=== PATIENT | male | born 1990 | race Caucasian/White ===

== ENCOUNTER 2020-07-28 02:20 | Emergency (ER) | payer MEDICAID ==
[~2020-07-28] VITALS: Ht 198.1 cm; Wt 104.5 kg
[~2020-07-28 02:20] MED LIST: HYDR-4383 PO
[2020-07-28 02:26] VITALS: BP 124/80
[2020-07-28] MEDS ORDERED: CEPH250T PO (02:29)
[2020-07-28] MEDS ORDERED: ibuprofen tablet 400 MG TABLET PO ONE (02:30)
[2020-07-28] MEDS ORDERED: acetaminophen 325mg tablet PO ONE (02:30)
[2020-07-28] MEDS ORDERED: ondansetron 4mg rapidly disintigrating tab PO ONE (02:30)
[2020-07-28] MEDS ORDERED: cephalexin 250mg capsule PO ONE (02:30)
--- NOTE | 2020-07-28 02:44 | NUR ---
Patient refused all medications, stating he had antibiotics at home and he came here for pain medication "per the necessary 3 day protocol" and "I am not a fucking drug addict". Patient refused to take prescription for Keflex and got up and walked out of exam room refusing to sign paperwork or take discharge instructions. MD notified.
== END 2020-07-28 02:49 | disposition home or self-care (01) ==
LOC: ER 02:21
DX: L03.116 Cellulitis of left lower limb (principal); F12.90 Cannabis use, unspecified, uncomplicated; Z90.89 Acquired absence of other organs; Z86.14 Personal history of Methicillin resistant Staphylococcus aureus infection; Z79.899 Other long term (current) drug therapy; Z88.2 Allergy status to sulfonamides; Z88.1 Allergy status to other antibiotic agents
CPT/HCPCS: 99283

== ENCOUNTER 2020-10-05 10:25 | Emergency (ER) | payer MEDICAID ==
[~2020-10-05] VITALS: Ht 198.1 cm; Wt 100.0 kg
[2020-10-05 10:47] VITALS: BP 135/84
== END 2020-10-05 15:53 | disposition left against medical advice (07) ==
LOC: ER 10:26
DX: S51.852A Open bite of left forearm, initial encounter (principal); Z53.21 Procedure and treatment not carried out due to patient leaving prior to being seen by health care provider; W54.0XXA Bitten by dog, initial encounter; Y93.89 Activity, other specified; Y92.89 Other specified places as the place of occurrence of the external cause; Y99.8 Other external cause status

== ENCOUNTER 2022-01-19 13:11 | Emergency (ER) | payer MEDICAID ==
[~2022-01-19] VITALS: Ht 195.6 cm; Wt 125.0 kg
[2022-01-19 13:11] VITALS: BP 145/91
[2022-01-19] MEDS ORDERED: LIDOcaine 1% W/epiNEPHrine 1:100,000 20ml vial SQ ONE (16:25)
[2022-01-19] MEDS ORDERED: LIDOcaine 1% w/EPI 1:100,000 30ml vial (MDV) SQ ONE (16:30)
[2022-01-19] MEDS ORDERED: cephalexin 500mg capsule PO ONE (17:15)
[2022-01-19] MEDS ORDERED: ibuprofen 200mg tablet PO ONE (17:15)
[2022-01-19] MEDS ORDERED: CEPH500C82 PO (17:19)
== END 2022-01-19 17:42 | disposition home or self-care (01) ==
LOC: ER 13:12
DX: L02.31 Cutaneous abscess of buttock (principal); F12.90 Cannabis use, unspecified, uncomplicated; Z86.14 Personal history of Methicillin resistant Staphylococcus aureus infection; Z90.89 Acquired absence of other organs; Z88.2 Allergy status to sulfonamides; Z88.1 Allergy status to other antibiotic agents; Z79.2 Long term (current) use of antibiotics
CPT/HCPCS: 10060; 99283

== ENCOUNTER 2022-10-06 13:19 | Emergency (ER) | payer MEDICAID ==
[~2022-10-06] VITALS: Ht 195.6 cm; Wt 122.0 kg
[~2022-10-06 13:19] MED LIST changes: +HYDR-3973 PO
[2022-10-06 13:21] VITALS: BP 143/98
[2022-10-06] MEDS ORDERED: DOXY-356 PO (14:05)
[2022-10-06] MEDS ORDERED: HYDR-3972 PO (14:05)
== END 2022-10-06 14:14 | disposition home or self-care (01) ==
LOC: ER 13:20
DX: S51.801A Unspecified open wound of right forearm, initial encounter (principal); F12.10 Cannabis abuse, uncomplicated; Z86.14 Personal history of Methicillin resistant Staphylococcus aureus infection; Z88.2 Allergy status to sulfonamides; Z88.1 Allergy status to other antibiotic agents; Z79.899 Other long term (current) drug therapy; W54.0XXA Bitten by dog, initial encounter; Y93.89 Activity, other specified; Y92.89 Other specified places as the place of occurrence of the external cause; Y99.8 Other external cause status
CPT/HCPCS: 99283; A6258; A6449

== ENCOUNTER 2022-10-23 13:45 | Emergency (ER) | payer MEDICAID ==
[~2022-10-23] VITALS: Ht 195.6 cm; Wt 106.0 kg
[2022-10-23 13:55] VITALS: BP 144/100; PULSE 114; RESP 17; O2SAT 97
[2022-10-23] MEDS ORDERED: HYDR-3973 PO (15:46)
== END 2022-10-23 16:11 | disposition home or self-care (01) ==
LOC: ER 13:46
DX: S51.852D Open bite of left forearm, subsequent encounter (principal); M79.632 Pain in left forearm; Z88.2 Allergy status to sulfonamides; Z88.1 Allergy status to other antibiotic agents; Z79.899 Other long term (current) drug therapy; W54.0XXD Bitten by dog, subsequent encounter
CPT/HCPCS: 99283

== ENCOUNTER 2023-01-03 08:37 | Emergency (ER) | payer MEDICAID ==
[~2023-01-03] VITALS: Ht 195.6 cm; Wt 113.6 kg
[~2023-01-03 08:37] MED LIST changes: -HYDR-3973 PO
[2023-01-03 08:43] VITALS: BP 145/97; PULSE 124; RESP 16; TEMP 98.6; O2SAT 98
[2023-01-03] MEDS ORDERED: fluconazole 100mg tablet PO ONE (09:15)
[2023-01-03] MEDS ORDERED: diphenhydrAMINE 25 MG/10 ML UD oral solution PO ONE (09:15)
[2023-01-03] MEDS ORDERED: LIDOcaine Viscous 15ml cup MM PRN (09:15)
[2023-01-03] MEDS ORDERED: mag hydrox/Alum hydrox/simeth 30ml oral suspension PO ONE (09:15)
[2023-01-03] MEDS ORDERED: FLUC100T PO (09:16)
[2023-01-03] MEDS ORDERED: ACET160S PO (09:18)
== END 2023-01-03 09:53 | disposition home or self-care (01) ==
LOC: ER 08:37
DX: B37.81 Candidal esophagitis (principal)
CPT/HCPCS: 99284; Q0163

== ENCOUNTER 2023-06-06 21:53 | Emergency (ER) | payer MEDICAID ==
[~2023-06-06] VITALS: Ht 195.6 cm; Wt 106.3 kg
[2023-06-06] MEDS ORDERED: LORazepam 1 MG tablet PO ONE (22:15)
[2023-06-06] MEDS: amox tr/potassium clavulanate 875/125mg TAB PO ONE (22:20)
[2023-06-06] MEDS ORDERED: AMOX-580 PO (22:20)
[2023-06-06] MEDS: TETanus/Pertussis (Acell)/Diphther VAC/PF (Tdap-Adult) 0.5ml syringe IMVAC ONE (22:21)
[2023-06-06] MEDS ORDERED: ketorolac trometh. 30mg/ml inj. IM ONE (22:25)
[2023-06-06] MEDS: oxyCODONE/APAP 5-325mg tablet PO ONE (23:13)
[2023-06-06] MEDS: LORazepam 1 MG tablet PO ONE (23:15)
[2023-06-06] MEDS: ketorolac trometh. 30mg/ml inj. IM ONE (23:15)
[2023-06-07 00:24] VITALS: BP 130/80; PULSE 88; RESP 18; TEMP 98.1; O2SAT 100
== END 2023-06-06 23:45 | disposition home or self-care (01) ==
LOC: ER 21:54
DX: S51.812A Laceration without foreign body of left forearm, initial encounter (principal); S51.811A Laceration without foreign body of right forearm, initial encounter; S81.811A Laceration without foreign body, right lower leg, initial encounter; F12.90 Cannabis use, unspecified, uncomplicated; Z88.2 Allergy status to sulfonamides; Z88.1 Allergy status to other antibiotic agents; Z79.2 Long term (current) use of antibiotics; W54.0XXA Bitten by dog, initial encounter; Y93.89 Activity, other specified; Y92.89 Other specified places as the place of occurrence of the external cause; Y99.8 Other external cause status
CPT/HCPCS: 73090; 90471; 90715; 99283

== ENCOUNTER 2024-05-06 10:55 | Emergency (ER) | payer MEDICAID ==
[~2024-05-06] VITALS: Ht 195.6 cm; Wt 100.0 kg
[2024-05-06 11:03] VITALS: TEMP 97.7
[2024-05-06 13:02] LABS: BASOPHILS # (AUTO) 0.1 X10'3 (0-0.2); BASOPHILS % (AUTO) 0.4 % (0-1); EOSINOPHILS % (AUTO) 0.1 % (0-6); HEMOGLOBIN 14.9 g/dl (14.0-17.9); LYMPHOCYTES # (AUTO) 1.7 X10'3 (1.1-4.8); LYMPHOCYTES % (AUTO) 12.3 % (21-51); MEAN CORPUSCULAR HEMOGLOBIN 31.8 PG (27.0-31.0); MEAN CORPUSCULAR HGB CONC 34.6 g/dL (33.0-36.5); MEAN CORPUSCULAR VOLUME 91.9 FL (78-98); MEAN PLATELET VOLUME 6.9 FL (7.4-10.4); MONOCYTES # (AUTO) 0.8 X10'3 (0-0.9); MONOCYTES % (AUTO) 5.8 % (2-12); NEUTROPHILS # (AUTO) 11.2 X10'3 (1.8-7.7); NEUTROPHILS % (AUTO) 81.4 % (42-75); PLATELET COUNT 330 X10'3 (140-440); RED BLOOD COUNT 4.68 X10'6 (4.70-6.10); RED CELL DISTRIBUTION WIDTH 12.5 % (11.5-14.5); WHITE BLOOD COUNT 13.8 X10'3 (4.5-11.0)
[2024-05-06 13:12] LABS: ALBUMIN 4.4 G/DL (3.4-5.0); ANION GAP 6 (8-16); BLOOD UREA NITROGEN 7 MG/DL (7-18); BUN/CREATININE RATIO 7.6 (10.0-20.0); CALCIUM 8.8 MG/DL (8.5-10.1); CHLORIDE 100 MMOL/L (99-107); CREATININE 0.92 MG/DL (0.60-1.10); POTASSIUM 3.7 MMOL/L (3.5-5.1); SODIUM 135 MMOL/L (135-145); TOTAL CARBON DIOXIDE 28.9 MMOL/L (24-32); eCRCL 143 ML/MIN; eGFR > 90 ML/MIN
[2024-05-06 13:19] LABS: GLUCOSE 124 MG/DL (70-104)
[2024-05-06 13:55] VITALS: BP 150/104; PULSE 85; RESP 16; O2SAT 100
== END 2024-05-06 13:50 | disposition home or self-care (01) ==
LOC: ER 10:56
DX: F15.90 Other stimulant use, unspecified, uncomplicated (principal); F12.90 Cannabis use, unspecified, uncomplicated; M79.605 Pain in left leg; Z88.2 Allergy status to sulfonamides; Z88.1 Allergy status to other antibiotic agents; Z90.89 Acquired absence of other organs
CPT/HCPCS: 36415; 80048; 85025; 93971; 99284

== ENCOUNTER 2024-09-21 10:02 | Emergency (ER) | payer MEDICAID ==
[~2024-09-21] VITALS: Ht 195.6 cm; Wt 102.2 kg
--- NOTE | 2024-09-21 10:21 | Physician Documentation ---
History of Present Illness ~ Chief Complaint: Hallucinations Stated Complaint: ROMAIN CLARK Time Seen by MD: 10:18 Primary Medical Doctor: NONE HPI This is a 34-year-old male who presents requesting mental health assistance due to having auditory hallucinations, patient reports no command hallucinations and reports no HI or SI. Patient reports that he has experienced similar symptoms before and is concerned he may have schizophrenia though has never been diagnosed formally with schizophrenia. Patient additionally reports nasal congestion and cough for the past week. 34-year-old male patient has argument with his mother and he was screaming and threatening his mother and then [place] police was called and then after they got him in the custody they dropped him at the [facility] ER. The patient told me that he has been having claustrophobia and auditory hallucination even though they are not demand. Patient denies SI and HI. He has been having issue is his mother and then grandmother came to the ER and I talked to the grandmother and then grandmother told me that she could not take care of him and she can not take him home to her house. Patient telling me that he has been having a lot of anxiety. Also requesting mental health evaluation and also requesting to put him back on antipsychotic medication. He said he has been using methamphetamine on and off for years and also occasional cannabis. Medication Reconciliation Allergies: Coded Allergies: Sulfa (Sulfonamide Antibiotics) (Verified Allergy, Intermediate, VOMITTING, 10/23/22) vancomycin (Verified Allergy, Intermediate, PAIN IN VEINS, 10/23/22) clindamycin (Verified Adverse Reaction, Mild, VOMITTING, 10/23/22) Scheduled PRN Hydrocodone/Acetaminophen ([place] 5-325 Tablet), 1 TABLET PO Q4H PRN for pain Miscellaneous Medications Home Med List (No Home Medications), (Reported) Past Medical History Past Medical History: No Pertinent History, MRSA Abscess Past Surgical History: tonsillectomy Alcohol Use: Rarely Drug Use: marijuana Lives In: Home Review of Systems ROS As stated above in the HPI, otherwise all systems are reviewed and negative. Physical Exam Vital Signs: Temperature: 97.6, Source: Oral, Heart Rate: 88, Respiratory Rate: 16, BP: 132/75, Pulse Oximetry: 98, Weight: 102.200 Oxygen Flow Rate: 0 Physical Exam VITALS: Reviewed and as above. GENERAL: Alert, nontoxic appearing, no apparent distress. HEENT: RESPIRATORY: No increased work of breathing, no respiratory distress, speaking in full clear sentences Reviewed vital signs and they are well within normal range. Const: He is she says Head: Atraumatic Eyes: Normal Conjunctiva ENT: Normal External Ears, Nose and Mouth. Moist mucous membranes Neck: Full range of motion. No meningismus Resp: Clear to auscultation bilaterally. Normal work of breathing Cardio: Regular rate and rhythm, no murmurs. Skin well perfused Abd: Soft, non-tender, non-distended. Normal bowel sounds. No rebound or guarding Skin: No petechiae or rashes. Warm and dry Back: No midline or flank tenderness Ext: No cyanosis, or edema Neuro: Awake and alert Psych: Normal Mood and Affect Progress Results/Orders Results/Orders Orders - EFREN MCCOY MD 1799.11 (09/21/24 11:21) Close Observation Level (09/21/24 11:21) Covid19 Binax Poc Result Entry (09/21/24 11:21) Completed Orders - EFREN MCCOY MD Cbc/Diff (09/21/24 11:21) Urinalysis (09/21/24 11:21) Drug Screen, Urine (09/21/24 11:21) Ethanol (09/21/24 11:21) TSH (09/21/24 11:21) BMP (09/21/24 11:21) Lorazepam Tablet (Ativan Tablet) (09/21/24 11:30) Nicotine 21mg Patch -24hr (Habitrol Patc (09/21/24 11:50) Regular Diet (09/21/24 Dinner) Vital Signs 09/21/24 09/21/24 09/21/24 09/21/24 10:10 10:47 17:24 18:54 Temp 97.6 97.8 Pulse 88 106 Resp 16 14 18 B/P (MAP) 132/75 114/74 (87) Pulse Ox 98 98 O2 Flow Rate 0 Laboratory Tests Test 09/21/24 11:31 09/21/24 11:35 09/21/24 11:50 White Blood Count 10.7 Red Blood Count 4.82 Hemoglobin 14.9 Hematocrit 43.5 Mean Corpuscular Volume 90.1 Mean Corpuscular Hemoglobin 30.9 Mean Corpuscular Hemoglobin Concent 34.3 Red Cell Distribution Width 12.5 Platelet Count 332 Mean Platelet Volume 6.3 L Neutrophils (%) (Auto) 62.0 Lymphocytes (%) (Auto) 28.5 Monocytes (%) (Auto) 6.8 Eosinophils (%) (Auto) 1.8 Basophils (%) (Auto) 0.9 Neutrophils # (Auto) 6.6 Lymphocytes # (Auto) 3.0 Monocytes # (Auto) 0.7 Eosinophils # (Auto) 0.2 Basophils # (Auto) 0.1 CBC Comment Sodium Level 139 Potassium Level 4.3 Chloride Level 105 Carbon Dioxide Level 29.7 Anion Gap 4 L Blood Urea Nitrogen 19 H Creatinine 0.93 Estimated GFR/1.73 m2 > 90 BUN/Creatinine Ratio 20.4 H Glucose Level 85 Calcium Level 9.1 Albumin 3.4 Thyroid Stimulating Hormone (TSH) 1.29 Chemistry Comments Ethyl Alcohol Level < 10 Urine Specimen Description Urinal Urine Color Yellow Urine Clarity Clear Urine pH 6.0 Urine Specific [place] 1.015 Urine Protein Negative Urine Glucose (UA) Negative Urine Ketones Negative Urine Occult Blood Negative Urine Nitrite Negative Urine Bilirubin Negative Urine Urobilinogen 0.2 Urine Leukocyte Esterase Negative Volume Urine Centrifuged 10 ml Urine Comment Urine Opiates Screen Negative Urine Methadone Screen Negative Urine Fentanyl Screen Negative Urine Barbiturates Screen Negative Urine Phencyclidine Screen Negative Urine Amphetamines Screen Positive Urine Benzodiazepines Screen Negative Urine Cocaine Screen Negative Urine Cannabinoids Screen Positive Drug Screen Comment SARS-CoV-2 Antigen (Rapid) Negative Medical Decision Making Findings MSE performed in triage and patient returned to ED lobby by nursing staff During the physical examination, the findings suggestive of acute life- threatening condition such as JVD, tracheal deviation, acidotic breathing, noisy stridorous breath sounds, pulses paradoxus, muffled heart sounds, unequal breath sounds, abdominal rigidity and rebound tenderness, focal neurological deficits, cool clammy skin, severe hypotension, severe tachycardia or bradycardia are absent. His CBC CMP are well within normal range and his alcohol level is normal. Urine drug screen positive for meth and cannabis. Transfer orders for [facility]: At this time there is no evidence of an emergent medical condition that would preclude (admission/transfer) to a psychiatric unit via [facility] protocol for further psychiatric, as well as medical evaluation and treatment. At this time I have no reason to believe that transfer via [facility] protocol would have serious medical compromise in the patient's health. Patient is medically cleared for above. DISCLAIMER Inadvertent spelling and grammatical errors,inadvertent machine sprayer errors,syntax errors, grammatical errors, and spelling errors are likely due to EMR/dictation software use and do not reflect on the overall quality of patient care. Note that the electronic time recorded on this note does not necessarily reflect the actual time of the patient encounter. Departure Disposition: 02 SHORT TERM HOSPITAL Impression: Primary Impression: Hallucinations Additional Impressions: Behavioral disorder Drug-induced psychotic disorder Discharge Instructions: Methamphetamines Use Disorder Referrals: NO PRIMARY CARE PROVIDER (PCP) Signature Scribe Signature: None Attestation: The note accurately reflects work and decisions made by me.Pascual Hardwick MD 09/21/24 19:26 My dictation Addendum Patient is seen by Psychiatric Services. They feel he had methamphetamine induced psychosis and he has cleared up and is safe for discharge. He has been given resources. ER precautions discussed. ERICA MAURICE Sep 21, 2024 10:21 EFREN MCCOY MD Sep 21, 2024 13:35 PASCUAL HARDWICK MD Sep 21, 2024 19:26
[2024-09-21 11:40] LABS: BASOPHILS # (AUTO) 0.1 X10'3 (0-0.2); BASOPHILS % (AUTO) 0.9 % (0-1); EOSINOPHILS # (AUTO) 0.2 X10'3 (0-0.9); EOSINOPHILS % (AUTO) 1.8 % (0-6); HEMATOCRIT 43.5 % (42.0-52.0); HEMOGLOBIN 14.9 g/dl (14.0-17.9); LYMPHOCYTES % (AUTO) 28.5 % (21-51); MEAN CORPUSCULAR HEMOGLOBIN 30.9 PG (27.0-31.0); MEAN CORPUSCULAR HGB CONC 34.3 g/dL (33.0-36.5); MEAN CORPUSCULAR VOLUME 90.1 FL (78-98); MEAN PLATELET VOLUME 6.3 FL (7.4-10.4); MONOCYTES # (AUTO) 0.7 X10'3 (0-0.9); MONOCYTES % (AUTO) 6.8 % (2-12); NEUTROPHILS # (AUTO) 6.6 X10'3 (1.8-7.7); PLATELET COUNT 332 X10'3 (140-440); RED BLOOD COUNT 4.82 X10'6 (4.70-6.10); RED CELL DISTRIBUTION WIDTH 12.5 % (11.5-14.5); WHITE BLOOD COUNT 10.7 X10'3 (4.5-11.0)
[2024-09-21] MEDS: nicotine 21mg patch - 24 hr TD ONE (11:56)
[2024-09-21] MEDS: LORazepam 1 MG tablet PO ONE (11:56)
[2024-09-21 12:03] LABS: ALBUMIN 3.4 G/DL (3.4-5.0); ANION GAP 4 (8-16); BLOOD UREA NITROGEN 19 MG/DL (7-18); BUN/CREATININE RATIO 20.4 (10.0-20.0); CALCIUM 9.1 MG/DL (8.5-10.1); CHLORIDE 105 MMOL/L (99-107); CREATININE 0.93 MG/DL (0.60-1.10); GLUCOSE 85 MG/DL (70-104); POTASSIUM 4.3 MMOL/L (3.5-5.1); SODIUM 139 MMOL/L (135-145); THYROID STIMULATING HORMONE 1.29 ulU/ml (0.34-4.50); TOTAL CARBON DIOXIDE 29.7 MMOL/L (24-32); eCRCL 140 ML/MIN; eGFR > 90 ML/MIN
[2024-09-21 12:04] LABS: BILIRUBIN,URINE NEGATIVE (Neg); CLARITY,URINE CLEAR (Clear); COLOR,URINE YELLOW (Yellow); GLUCOSE, URINE NEGATIVE (Neg); KETONES,URINE NEGATIVE (Neg); LEUKOCYTE ESTERASE ,URINE NEGATIVE (Neg); NITRITES, URINE NEGATIVE (Neg); OCCULT BLOOD,URINE NEGATIVE (Neg); PROTEIN,URINE NEGATIVE (Neg); UROBILINOGEN,URINE 0.2 E.U/dL (0.2-1.0)
[2024-09-21 12:18] LABS: ETHANOL < 10 MG/DL (<10)
[2024-09-21 12:18] LABS: UA COLLECTION TYPE URINAL; URINE AMPHETAMINE SCREEN POSITIVE (Neg); URINE BARBITUATE SCREEN NEGATIVE (Neg); URINE BENZODIAZEPINES SCREEN NEGATIVE (Neg); URINE CANNABINOID SCREEN POSITIVE (Neg); URINE COCAINE SCREEN NEGATIVE (Neg); URINE METHADONE SCREEN NEGATIVE (Neg); URINE OPIATE SCREEN NEGATIVE (Neg); URINE PHENCYCLIDINE SCREEN NEGATIVE (Neg)
[2024-09-21] MEDS ORDERED: NO HOME MEDS (16:47)
[2024-09-21 17:24] VITALS: BP 114/74; PULSE 106; TEMP 97.8; O2SAT 98
[2024-09-21 18:54] VITALS: RESP 18
== END 2024-09-21 20:16 | disposition short-term general hospital (02) ==
LOC: ER 10:03
DX: R44.0 Auditory hallucinations (principal); F91.9 Conduct disorder, unspecified; F19.959 Other psychoactive substance use, unspecified with psychoactive substance-induced psychotic disorder, unspecified; R05.9 Cough, unspecified; R09.81 Nasal congestion; F41.9 Anxiety disorder, unspecified; F12.90 Cannabis use, unspecified, uncomplicated; Z20.822 Contact with and (suspected) exposure to COVID-19; Z88.1 Allergy status to other antibiotic agents; Z88.2 Allergy status to sulfonamides; Z90.89 Acquired absence of other organs
CPT/HCPCS: 36415; 80048; 80305; 80320; 81003; 84443; 85025; 87811; 99284

== ENCOUNTER 2025-02-20 22:59 | Emergency (ER) | payer MEDICAID ==
[~2025-02-20] VITALS: Ht 195.6 cm; Wt 102.0 kg
[~2025-02-20 22:59] MED LIST changes: +NO HOME MEDS
[2025-02-20 23:13] VITALS: BP 136/89; PULSE 106; RESP 18; TEMP 97.7; O2SAT 100
--- NOTE | 2025-02-21 00:14 | RADIOLOGY REPORT ---
CLINICAL INDICATION: ANKLE PAIN,LEFT TECHNIQUE: ANKLECPLTDI ANKLE, COMPLETE(3VW MIN) Comparison: None FINDINGS/IMPRESSION: : There is no evidence of acute fracture or dislocation. Soft tissues are unremarkable.
== END 2025-02-21 00:39 | disposition left against medical advice (07) ==
LOC: ER 23:00
DX: S91.352A Open bite, left foot, initial encounter (principal); Z53.21 Procedure and treatment not carried out due to patient leaving prior to being seen by health care provider; Z88.2 Allergy status to sulfonamides; Z88.1 Allergy status to other antibiotic agents; W54.0XXA Bitten by dog, initial encounter; Y93.89 Activity, other specified; Y92.89 Other specified places as the place of occurrence of the external cause; Y99.8 Other external cause status
CPT/HCPCS: 73610; 99281